=== PATIENT | female | born 1990 | race Two or more races ===

== ENCOUNTER 2021-05-25 17:16 | Emergency (ER) | payer OTHER ==
[~2021-05-25] VITALS: Ht 157.5 cm; Wt 79.4 kg
== END 2021-05-25 22:00 | disposition home or self-care (01) ==
LOC: ED 17:16
DX: O20.0 Threatened abortion (principal); Z3A.09 9 weeks gestation of pregnancy
CPT/HCPCS: 76801; 76817; 84702; 85025; 99284-25; J7030